=== PATIENT | female | born 1985 | race Caucasian/White ===

== ENCOUNTER 2016-07-10 17:10 | Emergency (ER) | payer OTHER ==
[~2016-07-10] VITALS: Ht 172.7 cm; Wt 86.2 kg
--- NOTE | 2016-07-10 17:14 | ED AMS/SEIZURE/WEAK/DIZZY ---
History of Present Illness General Chief Complaint: General Adult Stated Complaint: BIBA FOR ?ETOH Source: EMS, friend Exam Limitations: intoxication Vital Signs & Intake/Output Vital Signs & Intake/Output Vital Signs Date Time Temp Pulse Resp B/P Pulse O2 O2 Flow FiO2 Ox Delivery Rate 07/10 2302 98.1 96 16 107/77 98 Room Air 07/10 2030 98.2 90 16 126/76 97 Room Air 07/10 1816 98.2 95 16 119/69 97 Room Air Allergies Coded Allergies: penicillin G (HIVES 12/21/15) Reconcile Medications No Known Home Medications Triage Nurses Notes Reviewed? yes Onset: Abrupt Duration: constant Timing: single episode today Injury Environment: work Severity: severe Severity Numbers: 10 No Modifying Factors: none HPI: Patient is a 31-year-old female who is brought in by ambulance for concerns of altered mental state. 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 History is limited in which patient is primarily Maori speaking PRIMARILY who presents with a friend who translate for patient. Patient initially denied any alcohol or drugs however she did state that she drank an unknown amount of alcohol prior to going to work. Patient currently showing intermittent aggressive behavior However patient was calmed enough to be placed from room 7 to room 14 The rest of patient's history currently is limited due to clinical presentation. It is noted by EMS the patient's had recently approximateLY 4 months ago (SILAS THOMAS) Past History Travel History Traveled to [place] past 21 day No Medical History Any Pertinent Medical History? see below for history Neurological: NONE EENT: NONE Cardiovascular: NONE Respiratory: NONE Gastrointestinal: NONE Hepatic: NONE Renal: NONE Musculoskeletal: NONE Psychiatric: alcohol dependence, depression Endocrine: NONE Surgical History Surgical History: non-contributory Psychosocial History Who do you live with Patient/Self What is your primary language Tajik Family History Hx Contributory? No (SILAS THOMAS) Review of Systems Review of Systems Constitutional: Reports: no symptoms. EENTM: Reports: no symptoms. Respiratory: Reports: no symptoms. Cardiovascular: Reports: no symptoms. GI: Reports: no symptoms. Genitourinary: Reports: no symptoms. Musculoskeletal: Reports: no symptoms. Skin: Reports: no symptoms. Neurological/Psychological: Reports: no symptoms. Hematologic/Endocrine: Reports: no symptoms. Immunologic/Allergic: Reports: no symptoms. All Other Systems: Reviewed and Negative (SILAS THOMAS) Physical Exam Physical Exam General Appearance: no apparent distress, intoxicated Head: atraumatic Eyes: Bilateral: normal appearance, PERRL. Ears, Nose, Throat: normal pharynx, normal ENT inspection Neck: normal inspection, supple Respiratory: normal breath sounds, chest non-tender Cardiovascular: regular rate/rhythm Gastrointestinal: normal bowel sounds, soft, non-tender Back: normal inspection Extremities: normal range of motion Neurologic/Psych: no motor/sensory deficits Skin: intact, normal color, warm/dry Core Measures ACS in differential dx? No CVA/TIA Diagnosis: No Severe Sepsis Present: No Septic Shock Present: No (SILAS THOMAS) Progress Differential Diagnosis: arrythmia, alcohol intoxication, anemia, benign positional vertigo, CVA/stroke, dehydration, drug intoxication, encephalitis, electrolyte imbalance, GI bleed, hypoglycemia, hypoxia, intracranial Hem., intracranial mass/tumor, labrynthitis, meningitis, Meniere's disease, migraine LANDRY, multiple sclerosis, pneumonia, postural hypotension, presyncope, post- traumatic vertigo, sepsis, seizure disorder, subarachnoid Hem., UTI/pyelo, vertebrobasilar insuff Plan of Care: Orders Procedure Date/time Status Continuous Observation Monitor 07/10 1724 Active URINE DRUGS OF ABUSE 07/10 171 Complete URINALYSIS 07/10 1715 Complete MAGNESIUM 07/10 171 Complete HUMAN BETA HCG SCREEN 07/10 171 Complete ETHANOL 07/10 1714 Complete COMPREHENSIVE METABOLIC PANEL 07/10 1714 Complete CBC WITHOUT DIFFERENTIAL 07/10 1714 Complete Laboratory Tests 07/10/16 2215: Urine Opiates Screen 215.00, Methadone Screen < 40, Barbiturate Screen < 60, Ur Phencyclidine Scrn < 6.00, Amphetamines Screen < 100, U Benzodiazepines Scrn < 85, Urine Cocaine Screen < 50, Urine Cannabis Screen < 5.00, Urine Color YEL, Urine Clarity CLEAR, Urine pH 6.0, Ur Specific [place] 1.015, Urine Protein NEG, Urine Ketones NEG, Urine Nitrite NEG, Urine Bilirubin NEG, Urine Urobilinogen 0.2, Ur Leukocyte Esterase NEG, Ur Microscopic EXAM NOT REQUIRED, Urine Hemoglobin NEG, Urine Glucose NEG 07/10/161714: Anion Gap 17 H, Estimated GFR > 60, BUN/Creatinine Ratio 15.7, Glucose 91, Calcium 9.1, Magnesium 2.2, Total Bilirubin 0.3, AST 32, ALT 45, Alkaline Phosphatase 63, Total Protein 7.6, Albumin 4.5, Globulin 3.1, Albumin/Globulin Ratio 1.5, Total Beta HCG NEGATIVE, CBC w Diff NO MAN DIFF REQ, RBC 4.63, MCV 81.0, MCH 26.5 L, RDW 19.2 H, MPV 10.4, Gran % 65.2, Lymphocytes % 27.9, Monocytes % 5.8, Eosinophils % 0.5, Basophils % 0.6, Absolute Granulocytes 4.8, Absolute Lymphocytes 2.0, Absolute Monocytes 0.4, Absolute Eosinophils 0, Absolute Basophils 0, PUBS MCHC 32.8 L, Serum Alcohol 355.0 Alcohol noted to be 355 and which 07/10/2016 8:13:24 PM patient currently has been sleeping for approximate 2 hourS in which patient will be handed off to Dr. Ralph who is aware of disposition and plan. A sitter was ordered for patient safety (SILAS THOMAS) Initial ED EKG: none Hand-Off Endorsed To: LINN RALPH MD Endorsed Time: 2013 Pending: consult, labs (SILAS THOMAS) Comments: 07/10/2016 8:31:11 PM patient signed out to me by ALVIN Carney. Clinically intoxicated with an alcohol level of 350. Will require reevaluation when more sober. 07/10/2016 11:10:26 PM the patient is now clinically sober with clear speech and stable gait. She denies suicide or homicide ideation. She has declined evaluation by crisis for psychiatric considerations and she has declined detox from alcohol. She is being discharged into the care of her significant other. (LINN RALPH MD) Departure Departure Condition: Stable Referrals: PATIENT HAS NO PRIMARY CARE DR (PCP/Family) Departure Forms: Customer Survey General Discharge Information Prescriptions: Current Visit Scripts No Known Home Medications (SILAS THOMAS) Departure Disposition: HOME OR SELF CARE Clinical Impression Primary Impression: Alcohol intoxication Qualifiers: Complication of substance-induced condition: uncomplicated Qualified Code: F10.120 - Alcohol abuse with intoxication, uncomplicated Secondary Impressions: Metabolic acidosis Additional Instructions: Cut down on your alcohol use. Consider a detox program. Follow-up with your primary care doctor this week for general medical evaluation. Return if any concerns or sudden worsening. PA/[employer] Co-Sign Statement Statement: ED Attending supervision documentation- [X] I saw and evaluated the patient. I have also reviewed all the pertinent lab results and diagnostic results. I agree with the findings and the plan of care as documented in the PA's/[employer]'s documentation. [] I have reviewed the ED Record and agree with the PA's/[employer]'s documentation. [] Additions or exceptions (if any) to the PAs/[employer]'s note and plan are summarized below: [] (ADRY SKINNER,LINN Nix) Critical Care Note Critical Care Note Critical Care Time: 30-74 min (YULI ESQUIVEL,SILAS)
[2016-07-10 17:34] LABS: ABSOLUTE BASOPHIL COUNT 0 /CUMM (0.0-0.2); ABSOLUTE EOSINOPHIL COUNT 0 /CUMM (0.0-0.7); ABSOLUTE GRANULOCYTE CT 4.8 /CUMM (1.4-6.5); ABSOLUTE MONOCYTE COUNT 0.4 /CUMM (0.10-0.60); BASOPHIL % 0.6 % (0.0-2.0); EOSINOPHIL % 0.5 % (0-5); GRANULOCYTE % 65.2 % (42.2-75.2); HEMATOCRIT 37.5 % (37-47); MEAN CORPUSCULAR HGB 26.5 PG (27.0-31.0); MEAN CORPUSCULAR HGB CONC 32.8 G/DL (33.0-37.0); MEAN PLATELET VOLUME 10.4 FL (7.4-10.4); PLATELET COUNT 251 /CUMM (130-400); RBC DISTRIBUTION WIDTH 19.2 % (11.5-14.5); RED BLOOD CELL CT 4.63 /CUMM (4.20-5.40); WHITE BLOOD CELL COUNT 7.3 /CUMM (4.8-10.8)
[2016-07-10 23:02] VITALS: BP 107/77
== END 2016-07-10 23:21 ==
LOC: ERH 17:10
PROVIDERS: Physician Assistant
DX: F10.129 Alcohol abuse with intoxication, unspecified (principal); E87.2 Acidosis
CPT/HCPCS: 80307; 81003; G0480